=== PATIENT | female | born 1990 | race Caucasian/White ===

== ENCOUNTER → 2019-05-09 | Outpatient (CLI) | payer BC | END | disposition home or self-care (01) | LOC: LABWHC1 14:38 | PROVIDERS: ATTEND Obstetrics & Gynecology Obstetrics | DX: N92.5 Other specified irregular menstruation (principal) | CPT/HCPCS: 36415; 84702 ==

== ENCOUNTER → 2019-05-11 | Outpatient (CLI) | payer BC | END | disposition home or self-care (01) | LOC: LABWHC1 14:41 | PROVIDERS: ATTEND Obstetrics & Gynecology Obstetrics | DX: N92.5 Other specified irregular menstruation (principal) | CPT/HCPCS: 36415; 84702; 86850; 86900; 86901 ==

== ENCOUNTER → 2019-05-14 | Outpatient (CLI) | payer BC | END | disposition home or self-care (01) | LOC: LABWHC1 11:43 | PROVIDERS: ATTEND Obstetrics & Gynecology Obstetrics | DX: O02.1 Missed abortion (principal) | CPT/HCPCS: 36415; 84702 ==

== ENCOUNTER → 2019-05-16 | Outpatient (CLI) | payer BC | END | disposition home or self-care (01) | LOC: LABWHC1 14:58 | PROVIDERS: ATTEND Obstetrics & Gynecology Obstetrics | DX: O20.0 Threatened abortion (principal) | CPT/HCPCS: 36415; 84144; 84702 ==

== ENCOUNTER → 2019-05-17 | Outpatient (CLI) | payer BC ==
[~2019-05-17] MED LIST: METHOTREXATE SODIUM (PF) 25 MG/ML 2 ML VIAL IM ONE
[2019-05-17 16:31] VITALS: BP 118/78; PULSE 80; RESP 16; TEMP 97.8
[2019-05-17 16:43] LABS: Basophils % (A) 0 %; Eosinophils # (A) 0.1 k/uL (0-0.7); Eosinophils % (A) 1 %; HCT 38.9 % (34.0-46.0); Lymphocytes # (A) 1.8 k/uL (1.0-4.8); Lymphocytes % (A) 31 %; MCH 31.4 pg (25.0-35.0); MCHC 33.5 g/dL (31.0-37.0); MCV 93.5 fL (80.0-100.0); Mean Platelet Volume 6.9; Monocytes # (A) 0.3 k/uL (0-1.0); Monocytes % (A) 6 %; Neutrophils # (A) 3.3 k/uL (1.3-7.7); Neutrophils % (A) 58 %; Platelet Count 221 k/uL (150-450); RBC 4.16 m/uL (3.80-5.40); RDW 12.1 % (11.5-15.5); WBC 5.7 k/uL (3.8-10.6)
[2019-05-17 16:51] LABS: ALT 27 U/L (4-34); AST 42 U/L (14-36); Blood Urea Nitrogen 18 mg/dL (7-17); Creatine Kinase 119 U/L (30-135)
[2019-05-17 16:58] LABS: HCG,Qualitative Serum Detected
== END | disposition home or self-care (01) ==
LOC: PROCWHC3 15:49
PROVIDERS: ATTEND Obstetrics & Gynecology Obstetrics
DX: O00.109 Unspecified tubal pregnancy without intrauterine pregnancy (principal); Z3A.00 Weeks of gestation of pregnancy not specified
CPT/HCPCS: 82550; 84450; 84460; 84520; 85025; 84703; 96402; J9260

== ENCOUNTER → 2019-05-17 | Outpatient (CLI) | payer BC ==
--- NOTE | 2019-05-17 14:44 | US ---
EXAMINATION TYPE: Ultrasound OB <= 14 weeks transvaginal DATE OF EXAM: 05/17/2019 2:26 PM COMPARISON: NONE CLINICAL HISTORY: 28-year-old female R68.89 generalized symptoms. Pt states vaginal bleeding and cram ping/ pt states positive beta at 60 EXAM PERFORMED: Transvaginal (TV) and Transabdominal (TA) FINDINGS: EXAM MEASUREMENTS: GESTATIONAL AGE / DATING Physician Established: Dates by LMP: (6 weeks/0 days) EDC: 01/10/2020 Dates by First Scan: No prior Dates by Current Scan for: No IUP seen at this time MATERNAL ANATOMY Uterus: 7.2 x 3.7 x 3.6 cm Right Ovary: 3.2 x 1.9 x 2.7 cm Left Ovary: 3.2 x 2.5 x 1.9 Post CDS / Adnexa: wnl Presence of free fluid: Scant amount post cul-de sac Presence of corpus luteal cyst: No GESTATION / SURVEY IUP: No IUP seen at this time Date of LMP: 04/05/2019 Beta HcG (if available): Pt states 60 on yesterday's draw No evidence of IUP at this time. Follicular change in both ovaries. Results called to Dr. Howe at time of exam IMPRESSION: No intrauterine identified. Correlate with beta-hCG values. A threshold of 2000 is needed f or visualization of an intrauterine on transvaginal scanning. If there is a positive pregna ncy test, differential considerations include normal early , failed , nonvisualized ectopic . Serial beta hCG and ultrasound follow-up as indicated.
== END | disposition home or self-care (01) ==
LOC: RADUSWWP 14:07
PROVIDERS: ATTEND Obstetrics & Gynecology Obstetrics
DX: R68.89 Other general symptoms and signs (principal)
CPT/HCPCS: 76801; 76817

== ENCOUNTER → 2019-05-23 | Outpatient (CLI) | payer BC ==
[2019-05-23 15:06] LABS: HCT 38.4 % (34.0-46.0); HGB 12.7 gm/dL (11.4-16.0); MCH 30.7 pg (25.0-35.0); MCV 92.9 fL (80.0-100.0); Mean Platelet Volume 6.8; Platelet Count 244 k/uL (150-450); RBC 4.14 m/uL (3.80-5.40); RDW 12.1 % (11.5-15.5); WBC 6.2 k/uL (3.8-10.6)
[2019-05-23 19:07] LABS: African American GFR (CKD) 136.7 (60.0-200.0); Non-African American GFR(CKD) 117.9 (60.0-200.0)
[2019-05-23 19:16] LABS: HCG,Quantitative Serum 61.1 mIU/mL
== END | disposition home or self-care (01) ==
LOC: LABWHC1 14:19
PROVIDERS: ATTEND Obstetrics & Gynecology Obstetrics
DX: O00.109 Unspecified tubal pregnancy without intrauterine pregnancy (principal)
CPT/HCPCS: 36415; 82565; 84450; 84460; 84520; 84702; 85027

== ENCOUNTER → 2019-05-28 | Outpatient (CLI) | payer BC | END | disposition home or self-care (01) | LOC: LABWHC1 17:08 | PROVIDERS: ATTEND Obstetrics & Gynecology Obstetrics | DX: O00.90 Unspecified ectopic pregnancy without intrauterine pregnancy (principal) | CPT/HCPCS: 36415; 84702 ==

== ENCOUNTER → 2019-06-01 | Outpatient (CLI) | payer BC | END | disposition home or self-care (01) | LOC: LABWHC1 15:50 | PROVIDERS: ATTEND Obstetrics & Gynecology Obstetrics | DX: O00.109 Unspecified tubal pregnancy without intrauterine pregnancy (principal) | CPT/HCPCS: 36415; 84702 ==

== ENCOUNTER → 2019-06-08 | Outpatient (CLI) | payer BC | END | disposition home or self-care (01) | LOC: LABWHC1 15:39 | PROVIDERS: ATTEND Obstetrics & Gynecology Obstetrics | DX: O00.109 Unspecified tubal pregnancy without intrauterine pregnancy (principal) | CPT/HCPCS: 36415; 84702 ==

== ENCOUNTER → 2019-09-03 | Outpatient (CLI) | payer BC | END | disposition home or self-care (01) | LOC: LABWHC1 10:06 | PROVIDERS: ATTEND Obstetrics & Gynecology Obstetrics | DX: N92.5 Other specified irregular menstruation (principal) | CPT/HCPCS: 36415; 84702 ==

== ENCOUNTER → 2019-09-05 | Outpatient (CLI) | payer BC | END | disposition home or self-care (01) | LOC: LABWHC1 09:48 | PROVIDERS: ATTEND Obstetrics & Gynecology Obstetrics | DX: N92.5 Other specified irregular menstruation (principal) | CPT/HCPCS: 36415; 84144; 84702 ==

== ENCOUNTER 2019-10-10 14:27 | Day surgery (SDC) | payer BC ==
[~2019-10-10 14:27] MED LIST changes: -METHOTREXATE SODIUM (PF) 25 MG/ML 2 ML VIAL IM ONE; +Pre Op ABX Message 1 EACH MISC MISCELLANE ONE
[2019-10-10] MEDS ORDERED: LACTATED RINGERS 1,000 ML IV ONE (14:56)
[2019-10-10] MEDS ORDERED: LIDOCAINE 1% (10MG/ML) FOR IV START INTRADERMA ONE (15:00)
[2019-10-10] MEDS ORDERED: ONDANSETRON 4 MG/2 ML VIAL ONE ×2 (15:07→18:02)
[2019-10-10] MEDS ORDERED: ONDANSETRON 4 MG/2 ML VIAL IVP ONE ×2 (15:08→18:02)
[2019-10-10] MEDS ORDERED: DEXAMETHASONE SOD PHOSPHATE 10 MG/ML 1 ML VIAL IV ONE (15:08)
[2019-10-10] MEDS ORDERED: SCOPOLAMINE 1.5MG/72HR PATCH TRANSDERM ONE (15:09)
[2019-10-10] MEDS ORDERED: MIDAZOLAM 2 MG/2 ML VIAL ONE (16:19)
[2019-10-10] MEDS ORDERED: LIDOCAINE 1% INJ 10MG/ML (20 ML MDV) ONE (16:19)
[2019-10-10] MEDS ORDERED: fentaNYL (PF) 50 MCG/ML 2 ML AMP ONE (16:19)
[2019-10-10] MEDS ORDERED: KETOROLAC 30 MG/ML 1 ML VIAL ONE (16:19)
[2019-10-10] MEDS ORDERED: PROPOFOL 10 MG/ML 20 ML VIAL IV ONE (16:19)
[2019-10-10] MEDS ORDERED: METHYLERGONOVINE 0.2 MG/ML 1 ML AMP ONE (16:19)
--- NOTE | 2019-10-10 16:58 | P.OP ---
Date of Procedure: 10/10/19 Preoperative Diagnosis: Missed AB Postoperative Diagnosis: Same Procedure(s) Performed: Suction dilation and curettage Anesthesia: MAC Surgeon: Pura Howe Estimated Blood Loss (ml): 5 Urine output (ml): 100 Pathology: other (Uterine contents) Condition: stable Disposition: PACU Indications for Procedure: This 29-year-old 2 para 0010 at estimated date of gestation 7 weeks, had ultrasound with no heart tones noted at 5 weeks 6 days comparable to prior ultrasound 2 weeks prior. No heart tones were appreciated. Operative Findings: Moderate amount of products of conception. Description of Procedure: Patient was taken back to the operative suite where general anesthesia was obtained by the anesthesia Department without difficulty. She was prepped and draped in normal sterile fashion in the dorsal lithotomy position. A red rubber catheter was then used to drain the bladder clear yellow urine. A weighted speculum was placed in the posterior vaginal vault intralipids the cervix is visualized and grasped with a scalpel to tenaculum. The endocervical canal was then dilated serially. An 8 curved suction curette was placed through the cervix and toward the endometrial cavity. A moderate amount of products of conception were obtained. Approximately 2 passes were used to clear the uterus. A sharp curettage was then performed to ensure all proximal were removed. The suction curet was placed one additional time to ensure complete evacuation. Significant tenaculum was taken off the anterior lip the cervix hemostasis was appreciated. Uterus noted be firm. All counts were noted be correct 2 patient tolerated procedure well and was taken the recovery room awake in stable condition.
[2019-10-10 17:05] VITALS: TEMP 97.7
[2019-10-10 17:15] VITALS: RESP 16
[2019-10-10] MEDS ORDERED: HYDROmorphone 0.5 MG/0.5 ML SYRINGE IVP ONE (17:16)
[2019-10-10 18:56] VITALS: BP 109/47; PULSE 64
== END 2019-10-10 19:13 | disposition home or self-care (01) ==
LOC: OR 14:27
PROVIDERS: ATTEND Obstetrics & Gynecology Obstetrics
DX: O02.1 Missed abortion (principal); Z88.2 Allergy status to sulfonamides; Z86.19 Personal history of other infectious and parasitic diseases; Z98.890 Other specified postprocedural states; Z80.8 Family history of malignant neoplasm of other organs or systems
CPT/HCPCS: 59820; J2250; J1100; J2210; J2405; J2001; J3010; J1885; J2704; J1170; 88305

== ENCOUNTER → 2019-11-08 | Outpatient (CLI) | payer BC ==
--- NOTE | 2019-11-08 23:06 | XR ---
EXAMINATION TYPE: XR cervical spine 3 views XR thoracic spine 3 views, XR lumbosacral spine 5 views, XR Hip Bilateral Complete, 2 views each side DATE OF EXAM: 11/08/2019 COMPARISON: NONE HISTORY: 29-year-old female R54, R54.9, pain positive NICOLA FINDINGS: Cervical spine: Normal odontoid view. Reversal of the normal cervical lordosis but with preserved alignment. No prede ntal space widening or prevertebral soft tissue swelling. Disc interspaces are maintained. Thoracic spine: Gentle S-shaped scoliosis lower thoracic and lumbar spine. 12 rib bearing thoracic vertebral bodies. All pedicles are visualized. Bulky anterior endplate T12-L1. Mild degenerative disc disease around th e thoracolumbar junction. Some mild focal kyphosis at this level. Vertebral body heights are preserve d. Alignment is maintained. Lumbar spine: Vertebral body heights are preserved and alignment is maintained. Mild facet arthropathy lower lumbar spine. Levoconvex scoliotic curvature of the lumbar spine. HIPS: Joint spaces are symmetric and maintained. No acute fracture, subluxation, dislocation. No subarticul ar erosions at the SI joints. Some vacuum phenomenon is noted at both SI joints. IMPRESSION: 1. Cervical spine: Reversal of the normal cervical lordosis but with preserved alignment and no signi ficant degenerative change seen. 2. Thoracolumbar spine: S-shaped scoliosis lower thoracic and lumbar spine. Bulky anterior plate spon dylosis T12-L1 with mild degenerative disc disease around the thoracolumbar junction. Some mild focal kyphotic curvature at this level. No vertebral compression collapse or malalignment. 3. Hips: No acute osseous abnormality seen. Hip joint space is maintained.
== END | disposition home or self-care (01) ==
LOC: RADXRMAIN 10:43
PROVIDERS: ATTEND Family Medicine
DX: M51.35 Other intervertebral disc degeneration, thoracolumbar region (principal); M47.815 Spondylosis without myelopathy or radiculopathy, thoracolumbar region; M41.85 Other forms of scoliosis, thoracolumbar region; M25.552 Pain in left hip; M25.551 Pain in right hip; M54.2 Cervicalgia; M54.5 Low back pain; M53.3 Sacrococcygeal disorders, not elsewhere classified
CPT/HCPCS: 72040; 72070; 72110; 73521

== ENCOUNTER → 2019-11-12 | Outpatient (CLI) | payer BC ==
[2019-11-12 23:47] LABS: HCG,Quantitative Serum 2.5 mIU/mL; T4, Free (Free Thyroxine) 1.1 ng/dL (0.80-1.80)
[2019-11-13 02:33] LABS: Hemoglobin A1C 4.8 % (4.0-6.0)
[2019-11-13 06:35] LABS: Cardiolipin Ab IgG Interp NEGATIVE (NEGATIVE); Cardiolipin Ab IgM Interp NEGATIVE (NEGATIVE); Cardiolipin IgM Antibody <0.2 U/mL
[2019-11-13 13:28] LABS: APTT 44 Sec(s) (<43); APTT 1:1 Mix 38 Sec(s) (<43); Dilute Russell Viper Venom 41 Sec(s) (<44)
[2019-11-13 19:24] LABS: Anti-Mullerian Hormone 1.58 ng/mL (0.69 - 13.39)
== END | disposition home or self-care (01) ==
LOC: LABWHC1 14:23
PROVIDERS: ATTEND Obstetrics & Gynecology Obstetrics
DX: O02.1 Missed abortion (principal)
CPT/HCPCS: 36415; 82397; 82784; 83036; 84439; 84443; 84702; 85613; 85730; 85732; 86147

== ENCOUNTER → 2019-12-27 | Outpatient (CLI) | payer BC | END | disposition home or self-care (01) | LOC: LABWHC1 11:31 | PROVIDERS: ATTEND Obstetrics & Gynecology Obstetrics | DX: Z34.90 Encounter for supervision of normal pregnancy, unspecified, unspecified trimester (principal); Z3A.00 Weeks of gestation of pregnancy not specified | CPT/HCPCS: 36415; 84144; 84702 ==

== ENCOUNTER → 2019-12-29 | Outpatient (CLI) | payer BC | END | disposition home or self-care (01) | LOC: LABMAIN 14:19 | PROVIDERS: ATTEND Obstetrics & Gynecology Obstetrics | DX: Z53.9 Procedure and treatment not carried out, unspecified reason (principal) ==

== ENCOUNTER → 2020-01-17 | Outpatient (CLI) | payer BC ==
--- NOTE | 2020-01-17 11:43 | US ---
EXAMINATION TYPE: Transabdominal DATE OF EXAM: 01/17/2020 11:20 AM COMPARISON: NONE CLINICAL HISTORY: O46.91 Antepartum hemorrhage, unspecified. h/o ectopic and miscarriage this year, c ramping and dark urine EXAM PERFORMED: OBTA/OBTV EXAM MEASUREMENTS: GESTATIONAL AGE / DATING Physician Established: Not yet established Dates by LMP: (6 weeks/5 days) EDC: 09/06/2020 Dates by First Scan: No previous this is first scan Dates by Current Scan for: (6 weeks/5 days) EDC: 09/06/2020 MATERNAL ANATOMY Uterus: 8.5 x 5.8 x 4.5cm Right Ovary: 3.1 x 2.5 x 1.9cm Left Ovary: 2.3 x 1.3 x 1.1cm Post CDS / Adnexa: wnl Presence of free fluid: no Presence of corpus luteal cyst: 2.2cm Presence of subchorionic bleed: no GESTATION / SURVEY CRL: 0.8cm (6 weeks/5 days) MSD: wnl Yolk Sac (normal less than 6mm): 0.2 Heart Rate: 133 bpm Rhythm: normal IUP: Viable IUP Date of LMP: Single live intrauterine gestation is confirmed as gestational sac, yolk sac, and pole are pres ent. No free fluid in pelvic cul-de-sac. Both ovaries are seen. No suspicious extra ovarian adnexal lesion. Right ovary has a 2.2 cm cystic le ruth with thick concentric wall thought to reflect corpus luteal cyst from recent ovulation. IMPRESSION: Single live intrauterine gestation is confirmed, mean crown-rump length 0.8 cm correspond s to a 6 week 5 day old fetus.
== END | disposition home or self-care (01) ==
LOC: RADUSWWP 10:52
PROVIDERS: ATTEND Obstetrics & Gynecology Obstetrics
DX: O46.91 Antepartum hemorrhage, unspecified, first trimester (principal); Z3A.01 Less than 8 weeks gestation of pregnancy
CPT/HCPCS: 76801; 76817

== ENCOUNTER 2020-09-05 06:00 | Inpatient (IN) | payer BC ==
[2020-09-05] MEDS ORDERED: CITRIC ACID-SODIUM CITRATE 15 ML CUP PO ONE (06:15)
[2020-09-05] MEDS: LACTATED RINGERS 1,000 ML IV SCH ×5 (06:25→16:48)
[2020-09-05 06:38] LABS: Basophils % (A) 0 %; Eosinophils # (A) 0.1 k/uL (0-0.7); Eosinophils % (A) 1 %; HCT 35.2 % (34.0-46.0); HGB 12.4 gm/dL (11.4-16.0); Lymphocytes % (A) 18 %; MCH 32.7 pg (25.0-35.0); MCHC 35.2 g/dL (31.0-37.0); MCV 92.7 fL (80.0-100.0); Mean Platelet Volume 7.2; Monocytes # (A) 0.6 k/uL (0-1.0); Monocytes % (A) 5 %; Neutrophils # (A) 8.1 k/uL (1.3-7.7); Neutrophils % (A) 73 %; Platelet Count 228 k/uL (150-450); RDW 12.6 % (11.5-15.5)
[2020-09-05] MEDS ORDERED: NALBUPHINE 10 MG/ML (1 ML AMP) ONE (07:35)
[2020-09-05] MEDS ORDERED: ONDANSETRON 4 MG/2 ML VIAL ONE (07:35)
[2020-09-05] MEDS ORDERED: MORPHINE SULFATE (PF) 0.3 MG/0.3 ML SYR ONE (07:35)
[2020-09-05] MEDS ORDERED: OXYTOCIN 10 UNIT/ML 1 ML VIAL ONE (07:35)
[2020-09-05] MEDS ORDERED: METOCLOPRAMIDE 5 MG/ML 2 ML VIAL IVP PRN (08:26)
[2020-09-05] MEDS ORDERED: ZOLPIDEM 5 MG TAB PO PRN (08:26)
[2020-09-05] MEDS ORDERED: diphenhydrAMINE 50 MG CAP PO PRN (08:26)
[2020-09-05] MEDS ORDERED: NALOXONE 0.4 MG/ML 1 ML VIAL IV PRN (08:26)
[2020-09-05] MEDS ORDERED: ONDANSETRON 4 MG/2 ML VIAL IVP PRN (08:26)
[2020-09-05] MEDS ORDERED: SIMETHICONE 80 MG CHEWABLE PO PRN (08:26)
[2020-09-05] MEDS ORDERED: diphenhydrAMINE 50 MG/ML 1 ML VIAL IVP PRN ×2 (08:26)
[2020-09-05] MEDS ORDERED: diphenhydrAMINE 25 MG CAP PO PRN (08:26)
[2020-09-05] MEDS ORDERED: OXYTOCIN 30 UNITS/500 ML NS 30 UNIT in SALINE 1 500ML.BAG IV SCH (08:30)
--- NOTE | 2020-09-05 08:31 | P.HPOB ---
History of Present Illness H&P Date: 09/05/20 Chief Complaint: IUP at 39-6/7 weeks, breech presentation This is a 30-year-old 3 para 0020 that presents to labor and delivery at 39-6/7 weeks, estimated due date of 09/06. Patient was examined in the office yesterday and found to be in breech presentation. Patient has been receiving routine care which has been uncomplicated. Patient notes good mo vement denies vaginal bleeding loss of fluid or contractions. On bloodwork this patient has a blood type of O+, rubella status immune, B surface antigen negative, HIV negative, RPR nonreactive, group beta strep cultures are negative. Review of Systems Constitutional: Denies chills, Denies fatigue, Denies fever Ears, nose, mouth and throat: Denies headache Cardiovascular: Reports leg edema Respiratory: Denies dyspnea Gastrointestinal: Denies constipation, Denies diarrhea, Denies nausea, Denies vomiting Genitourinary: Reports Past Medical History Past Medical History: No Reported History History of Any Multi-Drug Resistant Organisms: None Reported Additional Past Surgical History / Comment(s): d&c, X2 Knee sugerys Past Anesthesia/Blood Transfusion Reactions: Postoperative Nausea & Vomiting ( PONV) Past Psychological History: No Psychological Hx Reported Smoking Status: Never smoker Past Alcohol Use History: None Reported Past Drug Use History: None Reported Medications and Allergies Home Medications Medication Instructions Recorded Confirmed Type Aspirin 81 mg PO DAILY 09/05/20 09/05/20 History Famotidine [Pepcid] 40 mg PO BID 09/05/20 09/05/20 History Pnv No.95/Ferrous Fum/Folic AC 1 tab PO DAILY 09/05/20 09/05/20 History [ Multivitamin Tablet] Allergies Allergy/AdvReac Type Severity Reaction Status Date / Time Sulfa (Sulfonamide Allergy Rash/Hives Verified 10/10/19 14:43 Antibiotics) Exam Osteopathic Statement: *. No significant issues noted on an osteopathic structural exam other than those noted in the History and Physical/Consult. Vital Signs Temp Pulse Resp BP Pulse Ox 09/05/20 06:06 97.2 F L 76 16 117/70 96 Intake and Output 09/04/20 09/05/20 09/05/20 22:59 06:59 14:59 Other: Weight 90.718 kg Targeted physical exam is performed in this date and inspector and tester a well-nourished well-developed female in no acute distress, breathing is noted to be nonlabored, heart has regular rate and rhythm, abdomen is gravid, on ultrasound exam remains in the breech presentation. Cervical exam is deferred. heart tones noted to be category 1 and she is not callie. Results Result Diagrams: 09/05/20 06:15 Abnormal Lab Results - Last 24 Hours (Table) 09/05/20 Range/Units 06:15 WBC 11.0 H (3.8-10.6) k/uL Neutrophils # 8.1 H (1.3-7.7) k/uL Assessment and Plan (1) Term Current Visit: Yes Status: Acute Code(s): Z34.90 - ENCNTR FOR SUPRVSN OF NORMAL , UNSP, UNSP TRIMESTER SNOMED Code(s): 18384718 (2) Breech presentation Current Visit: Yes Status: Acute Code(s): O32.1XX0 - MATERNAL CARE FOR BREECH PRESENTATION, UNSP SNOMED Code(s): 8597610 Plan: This is a 30-year-old at 39-6/7 weeks that presents to labor and delivery for primary secondary to breech presentation. Patient is counseled on surgery all questions are answered. Risks are reviewed including but not limited to infection, bleeding, damage to bladder, bowel, injury. Patient states understanding and will proceed.
--- NOTE | 2020-09-05 08:37 | P.OP ---
Date of Procedure: 09/05/20 Preoperative Diagnosis: IUP at 39 and 6, breech presentation Postoperative Diagnosis: Same Procedure(s) Performed: Primary low transverse section Anesthesia: spinal Surgeon: Pura Howe Termite Technician #1: Ferny Vitale Estimated Blood Loss (ml): 530 IV fluids (ml): 800 Urine output (ml): 150 Pathology: none sent Condition: stable Disposition: observation Indications for Procedure: This is a 30-year-old at 39-6/7 weeks that presents to labor and delivery for primary secondary to breech presentation. Operative Findings: Normal uterus tubes and ovaries were appreciated, female infant in breech presentation,. Viable female infant delivered at 757, weight of 8 lbs. 3 oz. and Apgars of 8 and 9 at one and 5 minutes respect daily. Description of Procedure: Patient is taken back to the operating suite where spinal anesthesia was found be adequate by the anesthesia department. She was prepped and draped in normal sterile fashion in the dorsal supine position a Pfannenstiel skin incision was made the scalpel and carried through to the underlying layer of fascia. The fascia was then incised in the midline and the incision was extended laterally. The superior aspect of the fascial incision was then grasped with Art clamps, elevated and underlying rectus muscle was dissected off sharply. Attention was then turned the inferior aspect of the fascial incision which was grasped art clamps, elevated and underlying rectus muscle was dissected off sharply. The rectus muscles were in the midline the peritoneum was identified and entered. This incision was extended superiorly and inferiorly with good visualization the bladder. The bladder blade was then inserted into the pelvis. The vesicouterine peritoneum was visualized and the bladder flap was created using sharp and blunt dissection. Hysterotomy incision was made with the scalpel and the was encountered in a zara breech presentation. The hips were brought through the hysterotomy incision and the was delivered in the usual fashion. The umbilical cords doubly clamped and cut and the infant was handed off to awaiting RN. The placenta was then manually delivered and the uterus was cleared of all clots and debris. The uterus was delivered from the abdomen. The hysterotomy incision was closed with 0 Vicryl in a running locked fashion. A second imbricating suture was performed. Hemostasis was appreciated. The pelvis was then copiously irrigated. The uterus was returned to the abdomen and the gutters were cleared of all clots and debris. Hysterotomy incision was inspected and bleeding was noted on the left- hand side therefore a [id number] suture was used to obtain hemostasis. The hysterotomy incision was inspected once again hemostasis was appreciated. The peritoneum was then loosely reapproximated the rectus muscles inspected and hemostasis was appreciated. The fascia was then closed with 0 Vicryl in a running fashion from one lateral edge the midline and the other lateral edge the midline. The subcutaneous tissue was irrigated found to be hemostatic and closed with 3-0 Vicryl. The skin was then closed with 4-0 Vicryl in a subcuticular fashion. Steri-Strips and sterile dressings were applied. All counts were noted to be correct 2 at the end of the procedure. Patient and infant tolerated delivery well and are resting comfortably.
[2020-09-05] MEDS ORDERED: IBUPROFEN IV 800 MG in SODIUM CHLORIDE 0.9% 250 ML IV SCH (09:00)
[2020-09-05] MEDS: PRENATAL VIT-IRON-FOLIC ACID 1 EACH CAP PO SCH (09:22)
[2020-09-05] MEDS ORDERED: ACETAMINOPHEN IV (For NPO) 1,000 MG in EMPTY BAG 1 BAG IVPB SCH (12:00)
[2020-09-05] MEDS: ACETAMINOPHEN TAB 500 MG TAB PO SCH ×2 (12:07→18:06)
[2020-09-05] MEDS ORDERED: IBUPROFEN IV 800 MG in SODIUM CHLORIDE 0.9% 250 ML IV PRN (14:38)
[2020-09-05] MEDS ORDERED: ACETAMINOPHEN IV (For NPO) 1,000 MG in EMPTY BAG 1 BAG IVPB PRN (14:38)
[2020-09-05] MEDS: IBUPROFEN 600 MG TAB PO SCH ×2 (16:47→22:14)
[2020-09-05] MEDS: SENNOSIDES-DOCUSATE SODIUM 1 EACH TAB PO SCH (19:38)
[2020-09-06] MEDS: ACETAMINOPHEN TAB 500 MG TAB PO SCH ×5 (00:24→23:27)
[2020-09-06] MEDS: LACTATED RINGERS 1,000 ML IV SCH (02:23)
[2020-09-06] MEDS: IBUPROFEN 600 MG TAB PO SCH ×4 (04:09→22:24)
[2020-09-06 04:39] LABS: Basophils % (A) 0 %; Eosinophils # (A) 0.1 k/uL (0-0.7); Eosinophils % (A) 1 %; Lymphocytes # (A) 1.9 k/uL (1.0-4.8); Lymphocytes % (A) 16 %; MCH 33.6 pg (25.0-35.0); MCHC 35.5 g/dL (31.0-37.0); MCV 94.6 fL (80.0-100.0); Mean Platelet Volume 7.8; Monocytes # (A) 0.6 k/uL (0-1.0); Monocytes % (A) 5 %; Neutrophils % (A) 77 %; Platelet Count 175 k/uL (150-450); RBC 2.96 m/uL (3.80-5.40); RDW 12.7 % (11.5-15.5); WBC 11.8 k/uL (3.8-10.6)
[2020-09-06 04:40] LABS: HGB 9.9 gm/dL (11.4-16.0)
[2020-09-06] MEDS: SENNOSIDES-DOCUSATE SODIUM 1 EACH TAB PO SCH ×2 (08:07→19:30)
--- NOTE | 2020-09-06 09:40 | P.PNOBGPC ---
Subjective - Subjective Interval history: Feeling well overnight. Pain well-controlled with oral pain medications. Voi ding spontaneously. Lochia minimal. Patient reports: Reports appetite normal, Reports voiding normally, Reports pain well controlled, Reports ambulating normally [place]: doing well, nursing well Objective - Vital Signs Latest vital signs: Vital Signs Temp Pulse Pulse Resp BP Pulse Ox 09/06/20 08:00 98.5 F 78 16 101/66 98 09/06/20 04:00 98.6 F 72 18 92/57 96 09/06/20 00:00 98.5 F 61 18 98/58 96 09/05/20 20:00 98.3 F 65 18 100/65 97 09/05/20 16:00 98.4 F 60 16 105/64 97 09/05/20 12:00 98.1 F 60 16 95/54 96 09/05/20 10:25 55 L 16 100/58 09/05/20 09:59 52 L 16 102/62 96 Intake and Output 09/05/20 09/06/20 09/06/20 22:59 06:59 14:59 Output Total 1050 800 Balance -1050 -800 Output: Urine 1050 800 Other: # Voids 1 1 - Exam Extremities: Present: edema Abdomen: Present: normal appearance, soft. Absent: distention, tenderness Incision: Present: normal, dry, intact. Absent: erythematous Uterus: Present: normal, firm. Absent: tenderness - Labs Labs: Abnormal Lab Results - Last 24 Hours (Table) 09/06/20 Range/Units 04:05 WBC 11.8 H (3.8-10.6) k/uL RBC 2.96 L (3.80-5.40) m/uL Hgb 9.9 L D (11.4-16.0) gm/dL Hct 28.0 L (34.0-46.0) % Neutrophils # 9.0 H (1.3-7.7) k/uL Assessment and Plan (1) Breech presentation Current Visit: Yes Status: Acute Code(s): O32.1XX0 - MATERNAL CARE FOR BREECH PRESENTATION, UNSP SNOMED Code(s): 5520167 (2) Term Current Visit: Yes Status: Acute Code(s): Z34.90 - ENCNTR FOR SUPRVSN OF NORMAL , UNSP, UNSP TRIMESTER SNOMED Code(s): 48416366 (3) S/P section Current Visit: Yes Status: Acute Code(s): Z98.891 - HISTORY OF UTERINE SCAR FROM PREVIOUS SURGERY SNOMED Code(s): 739650206 Plan: Postop day 1 status post primary low transverse section for breech presentation. Recovering well. Routine care. Anticipate discharge home tomorrow.
--- NOTE | 2020-09-06 09:43 | P.PN ---
Progress Note - Text Progress Note Date: 09/06/20 (804) Anesthesia Postop day 1 Subjective: Status Post section with Duramorph. Patient seen and examined. Doing well without complaint. VAS 0. No nausea or vomiting. Mild pruritus tolerable.. Afebrile. Gross lower extremity strength intact. . Without apparent anesthetic complications. Objective: Vital signs reviewed Heart: Regular Rate Lungs: Good chest excursion Abdomen: Appears nondistended Assessment: Status post with Duramorph postop day 1 Plan: Continue current care with your medical management.
[2020-09-06] MEDS: PRENATAL VIT-IRON-FOLIC ACID 1 EACH CAP PO SCH (19:34)
[2020-09-07] MEDS: IBUPROFEN 600 MG TAB PO SCH ×2 (01:25→07:47)
[2020-09-07] MEDS: ACETAMINOPHEN TAB 500 MG TAB PO SCH ×2 (04:35→09:53)
[2020-09-07 07:47] VITALS: BP 116/74; PULSE 70; RESP 16; TEMP 97.8
--- NOTE | 2020-09-07 10:30 | P.DS ---
Providers Date of admission: 09/05/20 06:00 Expected date of discharge: 09/07/20 Attending physician: Pura Howe Primary care physician: Nadine Mathew - Discharge Diagnosis(es) (1) Breech presentation Current Visit: Yes Status: Acute (2) Term Current Visit: Yes Status: Acute (3) S/P section Current Visit: Yes Status: Acute Hospital Course: This is a 30-year-old 3 now para 10-1 woman who is admitted at 39-6/7 weeks' gestation for primary low transverse section secondary to breech presentation. She went to the operating room where she underwent an uncomplicated primary section. She was delivered of a liveborn female infant weighing 8 lbs. 3 oz. with Apgars of 8 at 1 minute and 9 at 5 minutes. The patient's post operative course was unremarkable. By postoperative day #1 she was able to ambulate and void spontaneously with a Patel catheter removed. She was breast-feeding and her lochia was moderate. By postoperative day #2 she continued to do very well. Her pain was well-controlled with oral ibuprofen and Tylenol. She was voiding spontaneously and had a bowel movement. Her incision is intact and well-healing. She had scant lochia. She is breast-feeding successfully. She was therefore discharged home with routine instructions for care and follow-up. Procedures: Primary low transverse section Patient Condition at Discharge: Good Plan - Discharge Summary New Discharge Prescriptions: New Acetaminophen Tab [Tylenol] 1,000 mg PO Q6H tab Ibuprofen [Motrin] 600 mg PO Q6H tab Sennosides-Docusate Sodium [Senokot-S] 2 each PO BID@0800,1999 tab Discontinued Aspirin 81 mg PO DAILY No Action Famotidine [Pepcid] 40 mg PO BID Pnv No.95/Ferrous Fum/Folic AC [ Multivitamin Tablet] 1 tab PO DAILY Discharge Medication List Famotidine [Pepcid] 40 mg PO BID 09/05/20 [History] Pnv No.95/Ferrous Fum/Folic AC [ Multivitamin Tablet] 1 tab PO DAILY 09/05/20 [History] Acetaminophen Tab [Tylenol] 1,000 mg PO Q6H tab 09/07/20 [Rx] Ibuprofen [Motrin] 600 mg PO Q6H tab 09/07/20 [Rx] Sennosides-Docusate Sodium [Senokot-S] 2 each PO BID@0800,1999 tab 09/07/20 [Rx] Follow up Appointment(s)/Referral(s): Pura Howe DO [Doctor of Osteopathic Medicine] - 2 Weeks Activity/Diet/Wound Care/Special Instructions: Follow-up in 2 weeks after surgery in the office. Call the office with any concerning signs or symptoms including fever greater than 100.5, severe abdominal pain, heavy vaginal bleeding, signs of wound infection, increased swelling or redness of the lower extremities, signs of depression. No driving for 2 weeks after surgery. No heavy lifting or vigorous activity until reevaluated in the office. No intercourse for 6 weeks after delivery.
== END 2020-09-07 13:32 | disposition home or self-care (01) | DRG 788 ==
LOC: 4FBP 06:00
PROVIDERS: ADMIT Obstetrics & Gynecology Obstetrics; ATTEND Obstetrics & Gynecology Obstetrics
PROC: 10D00Z1 Extraction of Products of Conception, Low, Open Approach (ICD-10-PCS; principal; 2020-09-05 07:30)
DX: O34.211 Maternal care for low transverse scar from previous cesarean delivery (principal); O69.81X0 Labor and delivery complicated by cord around neck, without compression, not applicable or unspecified; O64.1XX0 Obstructed labor due to breech presentation, not applicable or unspecified; O99.73 Diseases of the skin and subcutaneous tissue complicating the puerperium; L29.9 Pruritus, unspecified; O26.893 Other specified pregnancy related conditions, third trimester; Z67.40 Type O blood, Rh positive; Z37.0 Single live birth; Z3A.39 39 weeks gestation of pregnancy; Z79.82 Long term (current) use of aspirin; Z88.2 Allergy status to sulfonamides
CPT/HCPCS: 85025; 86850; 86900; 86901

== ENCOUNTER → 2021-03-19 | Outpatient (CLI) | payer BC ==
--- NOTE | 2021-03-19 13:55 | CT ---
EXAMINATION TYPE: CT abdomen pelvis w con DATE OF EXAM: 03/19/2021 COMPARISON: None HISTORY: Generalized abdominal and back pain post x6 months ago. CT DLP: 478.6 mGycm Automated exposure control for dose reduction was used. TECHNIQUE: Helical acquisition of images from the lung bases through the pelvis have been completed. CONTRAST: Performed with Oral Contrast and with IV Contrast, patient injected with 100ml mL of Isovue 300. FINDINGS: LUNG BASES: No significant abnormality is appreciated. AORTA: No significant abnormality is appreciated. LIVER/GB: Hypodensity within the right lobe of the liver measures only 11 mm, axial image 13, indeter minate PANCREAS: No significant abnormality is seen. SPLEEN: No significant abnormality is seen. ADRENALS: No significant abnormality is seen. KIDNEYS: No significant abnormality is seen. REPRODUCTIVE ORGANS: No significant abnormality is seen BOWEL: Retained fecal debris is present throughout the distribution of the colon, the appendix is no rmal, there is no small bowel obstruction. FREE AIR: No Free Air visible. ASCITES: None visible. PELVIC ADENOPATHY: None visualized. RETROPERITONEAL ADENOPATHY: No Retroperitoneal Adenopathy visible. URINARY BLADDER: No significant abnormality is seen. OSSEOUS STRUCTURES: No significant abnormality is seen, mild degenerative disc change is noted, ther e is a spinal curvature. IMPRESSION: CORRELATE FOR FECAL STASIS. FINDINGS IN THE LIVER STATISTICALLY LIKELY TO REPRESENT A CYST OR HEMANGI KARINA, ALTERNATE IMAGING COULD BE PERFORMED FOR FURTHER EVALUATION OR ALTERNATIVELY FOLLOW-UP COULD BE PERFORMED TO ASSESS FOR STABILITY.
== END | disposition home or self-care (01) ==
LOC: RADCTMAIN 11:29
PROVIDERS: ATTEND Physician Assistant Medical
DX: R10.84 Generalized abdominal pain (principal); M54.9 Dorsalgia, unspecified
CPT/HCPCS: 74177; Q9967

== ENCOUNTER → 2021-08-03 | Outpatient (CLI) | payer BC | END | disposition home or self-care (01) | LOC: LABWHC1 16:05 | PROVIDERS: ATTEND Obstetrics & Gynecology Obstetrics | DX: N92.5 Other specified irregular menstruation (principal) | CPT/HCPCS: 36415; 84144; 84702 ==

== ENCOUNTER → 2022-01-01 | Outpatient (CLI) | payer BC | END | disposition home or self-care (01) | LOC: LABWHC1 15:23 | PROVIDERS: ATTEND Obstetrics & Gynecology Obstetrics | DX: Z36.9 Encounter for antenatal screening, unspecified (principal) | CPT/HCPCS: 36415; 82950 ==

== ENCOUNTER 2022-02-22 20:10 | Emergency (ER) | payer BC ==
--- NOTE | 2022-02-22 21:12 | ED ---
Chest Pain HPI - General Chief Complaint: Chest Pain Stated Complaint: Chest Pain,Left shoulder pain, 8 Months Time Seen by Provider: 02/22/22 20:53 Source: patient, RN notes reviewed Mode of arrival: ambulatory Limitations: no limitations - History of Present Illness Initial Comments: This is a pleasant 31-year-old female presents to emergency department complaining of chest discomfort, dry cough with deep inspiration, tingling sensation and pain in her left arm, and left leg swelling. Patient is 38 weeks gestation. Patient A1. Patient denying any shortness of breath. Denying any chest pain other than the discomfort with a deep breath in. Patient also states her left knee seems to be bothering her more. Patient states she had arthroscopic surgery in that knee in 2012 but no recent surgery or injury. No headache, no fever or chills, no changes in vision or hearing, no sore throat or difficulty with speech, no neck pain, CHEST discomfort with deep inspiration, no abdominal pain, no nausea or vomiting, no changes in urination or bowel movements, no numbness or tingling, no extremity pain, no skin rashes or lesions. Past medical, surgical, social, and family history reviewed. - Related Data Home Medications Medication Instructions Recorded Confirmed Famotidine [Pepcid] 40 mg PO BID 09/05/20 09/05/20 Pnv No.95/Ferrous Fum/Folic AC 1 tab PO DAILY 09/05/20 09/05/20 [ Multivitamin Tablet] Previous Rx's Medication Instructions Recorded Acetaminophen Tab [Tylenol] 1,000 mg PO Q6H tab 09/07/20 Ibuprofen [Motrin] 600 mg PO Q6H tab 09/07/20 Sennosides-Docusate Sodium 2 each PO BID@0800,2000 tab 09/07/20 [Senokot-S] Allergies Allergy/AdvReac Type Severity Reaction Status Date / Time Sulfa (Sulfonamide Allergy Rash/Hives Verified 10/10/19 14:43 Antibiotics) Review of Systems ROS Statement: Those systems with pertinent positive or pertinent negative responses have been documented in the HPI. ROS Other: All systems not noted in ROS Statement are negative. EKG Findings - EKG Comments: EKG Findings:: EKG done at 2050 and read by the ED attending physician reveals sinus rhythm with a rate of 69, normal axis, normal intervals, no acute ST or T- wave changes. RSR pattern in lead III Past Medical History Past Medical History: No Reported History History of Any Multi-Drug Resistant Organisms: None Reported Additional Past Surgical History / Comment(s): d&c, X2 Knee sugerys Past Anesthesia/Blood Transfusion Reactions: Postoperative Nausea & Vomiting (PONV) Past Psychological History: No Psychological Hx Reported Smoking Status: Never smoker Past Alcohol Use History: None Reported Past Drug Use History: None Reported General Exam - General Exam Comments Initial Comments: Patient does not appear to be ill or toxic. No specific distress. Vital signs reviewed. Capillary refill less than 2 seconds. No adventitious lung sounds. Limitations: no limitations General appearance: alert, in no apparent distress Head exam: Present: atraumatic, normocephalic, normal inspection Eye exam: Present: normal appearance, PERRL, EOMI. Absent: scleral icterus, con junctival injection, periorbital swelling ENT exam: Present: normal exam, mucous membranes moist Neck exam: Present: normal inspection, full ROM. Absent: tenderness, meningismus, lymphadenopathy Respiratory exam: Present: normal lung sounds bilaterally. Absent: respiratory distress, wheezes, rales, rhonchi, stridor Cardiovascular Exam: Present: regular rate, normal rhythm, normal heart sounds. Absent: systolic murmur, diastolic murmur, rubs, gallop, clicks GI/Abdominal exam: Present: soft, normal bowel sounds, other (Gravid uterus with no tenderness). Absent: distended, tenderness, guarding, rebound, rigid Extremities exam: Present: normal inspection, full ROM, normal capillary refill, pedal edema (Scant). Absent: tenderness, joint swelling, calf tenderness Back exam: Present: normal inspection, full ROM Neurological exam: Present: alert, oriented X3, CN II-XII intact Psychiatric exam: Present: normal affect, normal mood Skin exam: Present: warm, dry, intact, normal color. Absent: rash, cyanosis, diaphoretic, erythema, urticaria, vesicles Course Vital Signs 02/22/22 02/22/22 02/22/22 20:16 20:44 20:55 Temperature 98 F Pulse Rate 75 80 Pulse Rate [ 81 Pulse Oximetery ] Respiratory 16 16 Rate Blood Pressure 138/81 116/64 O2 Sat by Pulse 100 96 Oximetry 02/22/22 02/22/22 02/22/22 21:18 22:00 23:10 Temperature 98.0 F Pulse Rate 77 72 74 Pulse Rate [ Pulse Oximetery ] Respiratory 16 16 17 Rate Blood Pressure 116/70 111/64 106/66 O2 Sat by Pulse 96 97 96 Oximetry 02/23/22 00:00 Temperature Pulse Rate 70 Pulse Rate [ Pulse Oximetery ] Respiratory 16 Rate Blood Pressure 115/76 O2 Sat by Pulse 96 Oximetry - Reevaluation(s) Reevaluation #1: 02/23/22 00:37 Medical record is reviewed Symptoms are improved here in the emergency department Patient is informed of results and questions answered Patient in no distress Chest Pain MDM - MDM Differential diagnosis includes chest wall pain, acute bronchitis, possibly COVID-19 or other viral illness, pulmonary embolism is within the differential. Suspect the patient scant edema is due to the itself. Does not appear to be consistent with preeclampsia. The case was discussed in detail with ED attending physician. Presentation, findings, treatment plan discussed in detail. Pulmonary embolism was considered. Patient's d-dimer is elevated. Discussed pros worse cons of computed tomography scan with the patient to include radiation exposure and misdiagnosis. Patient concurs that the computed tomography scan is indicated. 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 Klein Computed tomography scan with IV contrast interpreted by me shows no evidence of acute pathology. No evidence of pulmonary embolism. Concur with radiology interpretation Disposition Clinical Impression: Atypical chest pain Disposition: HOME SELF-CARE Condition: Good Instructions (If sedation given, give patient instructions): Chest Pain (ED), Paresthesia (ED) Additional Instructions: Follow-up with your regular physician as directed. Return to the ER immediately if any symptoms worsen, new symptoms arise, or any other problems develop. Call in the morning to make an appointment with the assistant teaching professor. Is patient prescribed a controlled substance at d/c from ED?: No Referrals: Pura Howe DO [Doctor of Osteopathic Medicine] - 1-2 days Time of Disposition: 00:37
[2022-02-22 21:33] LABS: ALT 12 U/L (4-34); AST 26 U/L (14-36); African American GFR (CKD) >90 (>60 ml/min/1.73 sqM); Albumin 3.5 g/dL (3.5-5.0); Alkaline Phosphatase 126 U/L (38-126); Anion Gap 5 mmol/L; Basophils # (A) 0.1 k/uL (0-0.2); Basophils % (A) 0 %; Blood Urea Nitrogen 11 mg/dL (7-17); Calcium 8.6 mg/dL (8.4-10.2); Carbon Dioxide 22 mmol/L (22-30); Chloride 106 mmol/L (98-107); Eosinophils # (A) 0.1 k/uL (0-0.7); Eosinophils % (A) 1 %; Glucose 88 mg/dL (74-99); HCT 33.2 % (34.0-46.0); Lymphocytes # (A) 2.2 k/uL (1.0-4.8); Lymphocytes % (A) 19 %; MCH 33.3 pg (25.0-35.0); MCHC 36.1 g/dL (31.0-37.0); MCV 92.2 fL (80.0-100.0); Magnesium 2.1 mg/dL (1.6-2.3); Mean Platelet Volume 7.7; Monocytes # (A) 0.4 k/uL (0-1.0); Monocytes % (A) 4 %; Neutrophils # (A) 8.7 k/uL (1.3-7.7); Neutrophils % (A) 73 %; Non-African American GFR(CKD) >90 (>60 ml/min/1.73 sqM); Platelet Count 220 k/uL (150-450); Potassium 4.3 mmol/L (3.5-5.1); RDW 12.6 % (11.5-15.5); Sodium 133 mmol/L (137-145); Total Bilirubin 0.3 mg/dL (0.2-1.3); Total Protein 6.3 g/dL (6.3-8.2); WBC 11.8 k/uL (3.8-10.6)
[2022-02-22 22:04] LABS: Uric Acid 3.3 mg/dL (3.7-7.4)
--- NOTE | 2022-02-22 22:05 | US ---
EXAMINATION TYPE: US venous doppler duplex LE DATE OF EXAM: 02/22/2022 9:07 PM COMPARISON: NONE CLINICAL HISTORY: Leg pain, dyspnea, . Chest pain, 8 months pg SIDE PERFORMED: Bilateral TECHNIQUE: The lower extremity deep venous system is examined utilizing real time linear array sonog chance with graded compression, doppler sonography and color-flow sonography. VESSELS IMAGED: Common Femoral Vein Deep Femoral Vein Greater Saphenous Vein * Femoral Vein Popliteal Vein Small Saphenous Vein * Proximal Calf Veins (* superficial vessels) Right Leg: Negative for DVT Left Leg: Negative for DVT IMPRESSION: No evidence of deep vein thrombosis in both legs.
[2022-02-22 22:16] LABS: Amorphous Sediment,Urine Rare /hpf; Appearance,Urine Clear (Clear); Bacteria,Urine Occasional /hpf; Bilirubin,Urine Negative (Negative); Blood,Urine Negative (Negative); Color,Urine Light Yellow; Glucose,Urine (UA) Negative (Negative); Hyaline Casts,Urine 1 /lpf (0-2); Ketones,Urine Negative (Negative); Leukocyte Esterase,Urine Small (Negative); Nitrite,Urine Negative (Negative); Protein,Urine Negative (Negative); RBC,Urine <1 /hpf (0-5); Specific Gravity,Urine 1.026 (1.001-1.035); Squamous Epithelial Cell,Urine 1 /hpf (0-4); Urobilinogen,Urine <2.0 mg/dL (<2.0); WBC,Urine 3 /hpf (0-5)
[2022-02-22 23:10] VITALS: TEMP 98
[2022-02-22] MEDS ORDERED: SODIUM CHLORIDE 0.9% 1,000 ML IV ONE (23:13)
--- NOTE | 2022-02-23 00:24 | CT ---
EXAMINATION TYPE: CT chest angio for PE DATE OF EXAM: 02/23/2022 COMPARISON: HISTORY: chest pain elevated d dimer CT DLP: 343.3 mGycm Automated exposure control for dose reduction was used. CONTRAST: Performed with IV Contrast, patient injected with 75 mL of Isovue 370. There are Three-D postprocessed images. There is mild subsegmental atelectasis in interstitial density at the posterior lung bases. No pulmon storm mass. Heart and mediastinum are normal. There are no hilar masses. Thoracic aorta is intact. No d issection. No evidence of aneurysm. There is normal contrast opacification of the pulmonary arteries. No filling defect. The thoracic spine is intact. No fracture. Upper abdominal soft tissues are intact. IMPRESSION: No evidence of pulmonary embolism. Mild subsegmental atelectasis and interstitial density at the lung bases. No suspicious pulmonary mass.
[2022-02-23 00:39] VITALS: BP 115/76; PULSE 70; RESP 16
== END 2022-02-23 00:45 | disposition home or self-care (01) ==
LOC: EC 20:10
DX: O99.891 Other specified diseases and conditions complicating pregnancy (principal); R07.89 Other chest pain; Z3A.38 38 weeks gestation of pregnancy; Z88.2 Allergy status to sulfonamides
CPT/HCPCS: 36415; 93005; 85379; 83880; 80053; 83615; 83735; 84550; 84484; 85025; 81001; 87636; 93970; 71275; 99285; 96360; Q9967; 99284

== ENCOUNTER 2022-03-01 09:03 | Outpatient (CLI) | payer BC ==
[2022-03-01] MEDS ORDERED: ACETAMINOPHEN IV (For NPO) 1,000 MG in EMPTY BAG 1 BAG IVPB ONE (09:25)
[2022-03-01] MEDS ORDERED: LACTATED RINGERS 1,000 ML IV SCH (09:30)
[2022-03-01 09:52] LABS: Basophils % (A) 0 %; Eosinophils % (A) 0 %; HGB 12.3 gm/dL (11.4-16.0); Lymphocytes # (A) 0.6 k/uL (1.0-4.8); Lymphocytes % (A) 5 %; MCH 31.8 pg (25.0-35.0); MCHC 34.3 g/dL (31.0-37.0); MCV 92.8 fL (80.0-100.0); Mean Platelet Volume 8.3; Monocytes # (A) 0.3 k/uL (0-1.0); Monocytes % (A) 3 %; Neutrophils # (A) 9.6 k/uL (1.3-7.7); Neutrophils % (A) 90 %; Platelet Count 207 k/uL (150-450); RBC 3.88 m/uL (3.80-5.40); RDW 12.9 % (11.5-15.5); WBC 10.7 k/uL (3.8-10.6)
[2022-03-01 09:59] LABS: African American GFR (CKD) >90 (>60 ml/min/1.73 sqM); Anion Gap 5 mmol/L; Blood Urea Nitrogen 7 mg/dL (7-17); Calcium 8.1 mg/dL (8.4-10.2); Carbon Dioxide 22 mmol/L (22-30); Chloride 104 mmol/L (98-107); Glucose 88 mg/dL (74-99); Non-African American GFR(CKD) >90 (>60 ml/min/1.73 sqM); Potassium 4.2 mmol/L (3.5-5.1); Sodium 131 mmol/L (137-145)
[2022-03-01 10:42] LABS: Appearance,Urine Clear (Clear); Bacteria,Urine Moderate /hpf; Bilirubin,Urine Negative (Negative); Blood,Urine Negative (Negative); Color,Urine Light Yellow; Glucose,Urine (UA) Negative (Negative); Ketones,Urine 2+ (Negative); Leukocyte Esterase,Urine Trace (Negative); Nitrite,Urine Negative (Negative); Protein,Urine Negative (Negative); RBC,Urine <1 /hpf (0-5); Specific Gravity,Urine 1.011 (1.001-1.035); Squamous Epithelial Cell,Urine <1 /hpf (0-4); Urobilinogen,Urine <2.0 mg/dL (<2.0); WBC,Urine 1 /hpf (0-5)
[2022-03-01] MEDS: LACTATED RINGERS 1,000 ML IV SCH ×2 (11:06→11:30)
[2022-03-01 11:21] VITALS: BP 123/67; PULSE 116; RESP 16; TEMP 99.6
--- NOTE | 2022-03-17 19:41 | P.MSEPDOC ---
Presenting Problems - Arrival Data Date of Arrival on Unit: 03/01/22 Time of Arrival on Unit: 09:03 Mode of Transport: Ambulatory - Complaint OB-Reason for Admission/Chief Complaint: Observation/Evaluation Comment: Pt presents to triage c/o fever and cough x 24 hours. Pt states onset of vomitting Tuesday at 1830, resolved at present. Has only been tolerating sips and crackers since last night. Pt congested. Denies nausea/vomiting/diarrhea at this time. Pt states last took Tylenol at 0100, fever was 102 at that time. Medical History - Information : 4 Para: 1 Term: 1 - Gestational Age Gestational Age by MARQUITA (wks/days): 34 Weeks and 2 Days - History Complications: Prior Review of Systems - Review of Systems Constitutional: No problems Breast: No problems ENT: Cough, Nasal congestion Cardiovascular: No problems Respiratory: No problems Gastrointestinal: Pain Genitourinary: No problems Musculoskeletal: No problems Neurological: No problems Skin: No problems Comment: Cramping started early this morning Vital Signs - Temperature Temperature: 99.6 F Temperature Source: Oral - Pulse Right Sitting Brachial Pulse Rate: 116 Pulse Assessment Method: Pulse Oximetry - Respirations Respiratory Rate: 16 Oxygen Delivery Method: Room Air O2 Sat by Pulse Oximetry: 95 - Blood Pressure Right Arm Sitting Blood Pressure: 123/67 Blood Pressure Mean: 85 Blood Pressure Source: Automatic Cuff Medical Screen Scoring - Cervical Exam Dilation (cm): 0 Effacement (%): 50 Station: -3 Membranes: Intact - Assessment - Baby A Baseline FHR: 155 Heart Rate - NICHD Category: Category I (Normal) NST: Reactive Physician Notification - Physician Notified Physician Notified Date: 03/01/22 Physician Notified Time: 09:45 Physician: Pura Howe New Order Received: Yes - Notification Comment Comment: 45-Spk c\Dr. Howe, present on unit. Reviewed pts reason for triage visit, VS, asst and hx reviewed. Orders rec'd for CBC, BMP, urinalysis, 1L LR, Ofirmev, Influenza, RSV, Covid swab. 7824-Dr. Howe contacted and reviewed pts labs, +Influenza A. SVE Cl/50/-3, FFN collected. Orders rec'd to administered 3L LR total and pt may be d/c home. FFN does not need to be sent. Cancel appt for this Tuesday and reschedule for following week. Tamiflu to be pres cribed to [facility]. Maternal Triage Index - Maternal Triage Index Presenting for scheduled procedure w/no complaint: No - Stat/Priority 1 Stat Priority 1: No - Urgent/Priority 2 Urgent Priority 2: No - Prompt/Priority 3 Prompt Priority 3: Yes Criteria Met for Priority 3: 34 2/7, cramping, previous c/s - Non-Urgent/Priority 4 Non-Urgent Priority 4: No Disposition - Disposition OB Disposition: Discharge to home, Written follow up instructions reviewed Discharge Date: 03/01/22 Discharge Time: 12:15 I agree with the RN Medical Screening Exam: Yes Case reviewed; plan agreed upon as documented in EMR&OBIX.: Yes Diagnosis: VOMITING OF , UNSPECIFIED
== END 2022-03-01 12:45 | disposition home or self-care (01) ==
LOC: FBPOP 09:03
PROVIDERS: ATTEND Obstetrics & Gynecology Obstetrics
DX: O21.9 Vomiting of pregnancy, unspecified (principal); Z3A.34 34 weeks gestation of pregnancy; Z88.2 Allergy status to sulfonamides
CPT/HCPCS: 59025; 99214; 96361; 96365; 36415; 80048; 85025; 81001; 87636; J0131

== ENCOUNTER 2022-04-04 23:35 | Inpatient (IN) | payer BC ==
[2022-04-04] MEDS: LACTATED RINGERS 1,000 ML IV SCH (23:59)
[2022-04-05] MEDS ORDERED: TERBUTALINE 1 MG/ML VIAL SQ PRN (00:13)
[2022-04-05] MEDS ORDERED: LIDOCAINE 0.5% (PF) 5 MG/ML (50 ML SDV) SQ PRN (00:13)
[2022-04-05] MEDS ORDERED: BUTORPHANOL 1 MG/ML 1 ML VIAL IV PRN (00:14)
[2022-04-05] MEDS ORDERED: OXYTOCIN 30 UNITS/500 ML NS 30 UNIT in SALINE 1 500ML.BAG IV SCH ×2 (00:15→10:15)
[2022-04-05 00:30] LABS: Basophils % (A) 0 %; Eosinophils # (A) 0.1 k/uL (0-0.7); Eosinophils % (A) 1 %; HCT 33.6 % (34.0-46.0); HGB 11.6 gm/dL (11.4-16.0); Lymphocytes # (A) 2.3 k/uL (1.0-4.8); Lymphocytes % (A) 23 %; MCH 31.9 pg (25.0-35.0); MCHC 34.6 g/dL (31.0-37.0); Mean Platelet Volume 8.1; Monocytes # (A) 0.4 k/uL (0-1.0); Monocytes % (A) 4 %; Neutrophils # (A) 6.9 k/uL (1.3-7.7); Neutrophils % (A) 69 %; Platelet Count 231 k/uL (150-450); RBC 3.65 m/uL (3.80-5.40); RDW 13.1 % (11.5-15.5)
[2022-04-05] MEDS: LACTATED RINGERS 1,000 ML IV SCH ×2 (03:04→03:52)
[2022-04-05] MEDS ORDERED: SODIUM CHLORIDE 0.9% 100 ML BAG ONE (03:11)
[2022-04-05] MEDS ORDERED: fentaNYL (PF) 50 MCG/ML 5 ML AMP ONE (03:11)
[2022-04-05] MEDS ORDERED: ROPIVACAINE 5 MG/ML 20 ML AMPULE ONE (03:11)
[2022-04-05] MEDS ORDERED: ROPIVACAINE 100 MG, fentaNYL (PF). 200 MCG in SODIUM CHLORIDE 0.9% 76 ML EPIDURAL ONE (06:49)
[2022-04-05] MEDS ORDERED: ONDANSETRON 4 MG/2 ML VIAL IVP STA (08:47)
--- NOTE | 2022-04-05 08:56 | P.HPOB ---
History of Present Illness H&P Date: 04/05/22 Chief Complaint: IUP at 39 and one, history of 1 desires TOLAC This is a 31-year-old 4 para 10-1 at 39 and one sevenths weeks that presents to labor and delivery with complaints of spontaneous rupture of membranes. Patient denied contractions at that time. Patient noted rupture around 10:30pm. Patient states fluid was noted to be clear in nature. Patient has been receiving routine care which has been essentially uncomplicated. Patient did have a COVID-19 infection during and has been receiving testing. All testing has been normal. Patient presented with grossly ruptured membranes, 2 cm dilated. Patient was admitted to labor and delivery. Review of Systems Constitutional: Denies chills, Denies fatigue, Denies fever Ears, nose, mouth and throat: Denies headache Cardiovascular: Reports leg edema Respiratory: Denies dyspnea Gastrointestinal: Denies constipation, Denies diarrhea, Denies nausea, Denies vomiting Genitourinary: Reports Past Medical History Past Medical History: No Reported History History of Any Multi-Drug Resistant Organisms: None Reported Past Surgical History: Section Additional Past Surgical History / Comment(s): d&c, X2 Knee sugerys Past Anesthesia/Blood Transfusion Reactions: Postoperative Nausea & Vomiting (PONV) Past Psychological History: No Psychological Hx Reported Smoking Status: Never smoker Past Alcohol Use History: None Reported Past Drug Use History: None Reported - Past Family History Father Family Medical History: No Reported History Medications and Allergies Home Medications Medication Instructions Recorded Confirmed Type Pnv No.95/Ferrous Fum/Folic AC 1 tab PO DAILY 09/05/20 04/05/22 History [ Multivitamin Tablet] Famotidine [Pepcid] 20 mg PO DAILY 03/01/22 03/01/22 History Allergies Allergy/AdvReac Type Severity Reaction Status Date / Time Sulfa (Sulfonamide Allergy Rash/Hives Verified 04/05/22 00:11 Antibiotics) Exam Osteopathic Statement: *. No significant issues noted on an osteopathic structural exam other than those noted in the History and Physical/Consult. Vital Signs Temp Pulse Resp BP Pulse Ox 04/05/22 00:09 96.9 F L 73 17 119/72 98 04/04/22 23:58 96.9 F L 73 17 119/72 98 Intake and Output 04/04/22 04/05/2204/05/23 22:59 06:59 14:59 Output Total 600 Balance -600 Output: Urine 600 Other: Weight 85.275 kg Targeted physical exam is performed in this date in general this is a well- nourished well-developed female in no acute distress, breathing is nonlabored, heart has a regular rate and rhythm, abdomen is gravid and appropriate for gestational age, heart tones are noted to be category 1 and she is callie every 2-3 minutes, on cervical exam she is 8-9, 100, -1 station per RN. Results Result Diagrams: 04/05/22 00:03 Abnormal Lab Results - Last 24 Hours (Table) 04/05/22 Range/Units 00:03 RBC 3.65 L (3.80-5.40) m/uL Hct 33.6 L (34.0-46.0) % Assessment and Plan (1) SROM (spontaneous rupture of membranes) Current Visit: Yes Status: Acute Code(s): TLL7566 - SNOMED Code(s): 689233065 (2) H/O section Current Visit: Yes Status: Acute Code(s): Z98.891 - HISTORY OF UTERINE SCAR FROM PREVIOUS SURGERY SNOMED Code(s): 523716297 (3) Desires vaginal after trial Current Visit: Yes Status: Acute Code(s): O34.219 - MATERNAL CARE FOR UNSP TYPE SCAR FROM PREVIOUS DEL SNOMED Code(s): 166211566 (4) Term Current Visit: No Status: Acute Code(s): Z34.90 - ENCNTR FOR SUPRVSN OF NORMAL , UNSP, UNSP TRIMESTER SNOMED Code(s): 16621771 Plan: 31-year-old at 30 and one sevenths weeks presented with complaints of spontaneous rupture of membranes. Patient was noted to be spontaneously ruptured and was admitted to labor and delivery. Patient eventually progressed in labor through the night. Patient is currently 8-9 cm. Patient did receive an epidural through the night for pain control. Anticipate spontaneous vaginal delivery.
[2022-04-05] MEDS ORDERED: diphenhydrAMINE 50 MG/ML 1 ML VIAL IVP PRN ×2 (10:06)
[2022-04-05] MEDS ORDERED: ZOLPIDEM 5 MG TAB PO PRN (10:06)
[2022-04-05] MEDS ORDERED: LANOLIN CREAM 5 GM TUBE TOPICAL PRN (10:06)
[2022-04-05] MEDS ORDERED: diphenhydrAMINE 25 MG CAP PO PRN (10:06)
[2022-04-05] MEDS ORDERED: BENZOCAINE/MENTHOL SPRAY 1 GM/SPRAY AEROSOL TOPICAL PRN (10:06)
[2022-04-05] MEDS ORDERED: diphenhydrAMINE 50 MG CAP PO PRN (10:06)
[2022-04-05] MEDS ORDERED: HYDROCORTISONE 2.5% RECTAL CREAM 30 GM TUBE RECTAL PRN (10:06)
[2022-04-05] MEDS ORDERED: SIMETHICONE 80 MG CHEWABLE PO PRN (10:06)
--- NOTE | 2022-04-05 10:09 | P.PROBDLV ---
Vaginal Delivery Note - . Vaginal Delivery Note: 31-year-old that presented at 39-2/7 weeks with complaints of spontaneous rupture of membranes. Patient states she noted rupture membranes around 20-30 clear in nature. Patient presented to labor and delivery and was noted to be 2 cm dilated. Patient was admitted to labor and delivery. Patient did progress in labor eventually becoming uncomfortable requesting epidural placement. Epidural was placed without difficulty by the anesthesia department. Contractions were noted to space after epidural therefore Pitocin augmentation was begun. 2 milliunits of Pitocin used to augment labor. Patient progressed quickly to complete began pushing and had a normal spontaneous vaginal delivery of a viable male infant at 946, weight of 7 lbs. 12 oz., Apgars of 8 and 9 at one and 5 minutes respectively. After two-minute delayed the umbilical cord was doubly clamped and cut the placenta was delivered spontaneously intact with three-vessel cord being noted. On inspection the patient's vaginal vault a second degree midline laceration was appreciated. This was instilled with lidocaine repaired with 3-0 Rapide in the usual fashion. Uterus is noted to be firm and below the umbilicus. Estimated blood loss 250 mL, patient and infant tolerated delivery well and are resting comfortably. All counts were noted to be correct 2 at the end of the delivery
[2022-04-05] MEDS: IBUPROFEN 600 MG TAB PO SCH ×3 (12:44→22:39)
[2022-04-05] MEDS: ACETAMINOPHEN TAB 325 MG TAB PO PRN (19:40)
[2022-04-05] MEDS: SENNOSIDES-DOCUSATE SODIUM 1 EACH TAB PO SCH (19:40)
[2022-04-06] MEDS: ACETAMINOPHEN TAB 325 MG TAB PO PRN ×2 (02:01→09:15)
[2022-04-06] MEDS: IBUPROFEN 600 MG TAB PO SCH (04:17)
--- NOTE | 2022-04-06 08:26 | P.DS ---
Providers Date of admission: 04/05/22 00:00 Expected date of discharge: 04/06/22 Attending physician: Pura Howe Primary care physician: Stated None - Discharge Diagnosis(es) (1) SROM (spontaneous rupture of membranes) Current Visit: Yes Status: Acute (2) H/O section Current Visit: Yes Status: Acute (3) Desires vaginal after trial Current Visit: Yes Status: Acute (4) Term Current Visit: No Status: Acute (5) (vaginal after ) Current Visit: Yes Status: Acute Hospital Course: This is a 31-year-old 4 now para 20-2 that presented to labor and delivery at 39-2/7 weeks with complaints of spontaneous rupture of membranes. Patient had been receiving routine care which have been complicated by COVID-19 infection but overall she has done well. Patient was admitted to labor and delivery noted to be 2 cm dilated. Patient did progress in labor eventually becoming uncomfortable and requesting epidural placement. Epidural was placed without difficulty by the anesthesia department. Patient progressed to complete began pushing and had a normal spontaneous vaginal delivery, of a viable male infant at 946, weight of 7 lbs. 12 oz., Apgars of 8 and 9 at one and 5 minutes respectively. Patient did sustain a second-degree midline laceration which was repaired in the usual fashion with 3-0 Rapide. Patient's course has been uneventful. On this day #1 she is ambulating and voiding without difficulty. She is tolerating a regular diet without nausea or vomiting. She states her pain is well-controlled. She denies concerns. She would like discharge home at 24 hours if possible. Patient does desire circumcision of her infant son and await done prior to discharge. Patient Condition at Discharge: Good Plan - Discharge Summary New Discharge Prescriptions: No Action Pnv No.95/Ferrous Fum/Folic AC [ Multivitamin Tablet] 1 tab PO DAILY Famotidine [Pepcid] 20 mg PO DAILY Discharge Medication List Pnv No.95/Ferrous Fum/Folic AC [ Multivitamin Tablet] 1 tab PO DAILY 09/05/20 [History] Famotidine [Pepcid] 20 mg PO DAILY 03/01/22 [History] Follow up Appointment(s)/Referral(s): Tremp,Pura S, DO [Doctor of Osteopathic Medicine] - 4 Weeks Patient Instructions/Handouts: Vaginal Delivery (DC), Vaginal Delivery (GEN) Activity/Diet/Wound Care/Special Instructions: Bleeding precautions are reviewed with patient, questions are answered. [id number] ibuprofen as needed for pain. No intercourse or tub baths until 6 weeks . Discharge Disposition: HOME SELF-CARE
[2022-04-06 08:30] VITALS: BP 141/67; PULSE 91; RESP 16; TEMP 98
[2022-04-06] MEDS: SENNOSIDES-DOCUSATE SODIUM 1 EACH TAB PO SCH (09:16)
== END 2022-04-06 11:24 | disposition home or self-care (01) | DRG 807 ==
LOC: FBPOP 23:35 → 4FBP 04-05
PROVIDERS: ADMIT Obstetrics & Gynecology Obstetrics; ATTEND Obstetrics & Gynecology Obstetrics
PROC: 10E0XZZ Delivery of Products of Conception, External Approach (ICD-10-PCS; principal; 2022-04-05)
PROC: 0KQM0ZZ Repair Perineum Muscle, Open Approach (ICD-10-PCS; 2022-04-05)
PROC: 4A0HXCZ Measurement of Products of Conception, Cardiac Rate, External Approach (ICD-10-PCS; 2022-04-05)
PROC: 3E033VJ Introduction of Other Hormone into Peripheral Vein, Percutaneous Approach (ICD-10-PCS; 2022-04-05)
DX: O34.211 Maternal care for low transverse scar from previous cesarean delivery (principal); Z37.0 Single live birth; O42.92 Full-term premature rupture of membranes, unspecified as to length of time between rupture and onset of labor; O70.1 Second degree perineal laceration during delivery; Z3A.39 39 weeks gestation of pregnancy; Z88.2 Allergy status to sulfonamides; Z86.14 Personal history of Methicillin resistant Staphylococcus aureus infection
CPT/HCPCS: 59025; 84112; 85025; 86850; 86900; 86901; 99213

== ENCOUNTER 2023-02-07 18:06 | Emergency (ER) | payer BC ==
[2023-02-07 18:46] VITALS: TEMP 97.9
[2023-02-07] MEDS ORDERED: ONDANSETRON 4 MG/2 ML VIAL IVP STA (19:24)
[2023-02-07] MEDS ORDERED: KETOROLAC 15 MG/ML 1 ML VIAL IVP STA (19:24)
--- NOTE | 2023-02-07 19:25 | ED ---
Abdominal Pain HPI - General Chief Complaint: Abdominal Pain Stated Complaint: abd pain on left side Time Seen by Provider: 02/07/23 18:50 Source: patient, RN notes reviewed, old records reviewed Mode of arrival: ambulatory Limitations: no limitations - History of Present Illness Initial Comments: This is a 32-year-old female DF to the emergency department for evaluation. Patient presents today for evaluation regards of abdominal pain with nausea. No vomiting of travel show sick contacts. Patient has no fevers. No recent travel history or sick contacts no other complaints. MD Complaint: abdominal pain -: days(s) Location: LLQ, suprapubic Radiation: suprapubic Migration to: no migration, LLQ Severity scale (1-10): 6 Quality: stabbing Consistency: intermittent Improves With: nothing Worsens With: nothing Associated Symptoms: nausea Treatments Prior to Arrival: other - Related Data Home Medications Medication Instructions Recorded Confirmed No Known Home Medications 02/07/23 02/07/23 Allergies Allergy/AdvReac Type Severity Reaction Status Date / Time Sulfa (Sulfonamide Allergy Rash/Hives Verified 02/07/23 22:27 Antibiotics) Review of Systems ROS Statement: Those systems with pertinent positive or pertinent negative responses have been documented in the HPI. ROS Other: All systems not noted in ROS Statement are negative. Past Medical History Past Medical History: No Reported History History of Any Multi-Drug Resistant Organisms: None Reported Past Surgical History: Section Additional Past Surgical History / Comment(s): d&c, X2 Knee sugerys Past Anesthesia/Blood Transfusion Reactions: Postoperative Nausea & Vomiting (PONV) Past Psychological History: No Psychological Hx Reported Smoking Status: Never smoker Past Alcohol Use History: None Reported Past Drug Use History: None Reported - Past Family History Father Family Medical History: No Reported History General Exam Limitations: no limitations General appearance: alert, in no apparent distress Head exam: Present: atraumatic, normocephalic, normal inspection Eye exam: Present: normal appearance, PERRL, EOMI. Absent: scleral icterus, conjunctival injection, periorbital swelling ENT exam: Present: normal exam, mucous membranes moist Neck exam: Present: normal inspection. Absent: tenderness, meningismus, lymphadenopathy Respiratory exam: Present: normal lung sounds bilaterally. Absent: respiratory distress, wheezes, rales, rhonchi, stridor Cardiovascular Exam: Present: regular rate, normal rhythm, normal heart sounds. Absent: systolic murmur, diastolic murmur, rubs, gallop, clicks GI/Abdominal exam: Present: soft, tenderness, normal bowel sounds. Absent: distended, guarding, rebound, rigid Extremities exam: Present: normal inspection, full ROM, normal capillary refill. Absent: tenderness, pedal edema, joint swelling, calf tenderness Back exam: Present: normal inspection Neurological exam: Present: alert, oriented X3, CN II-XII intact Psychiatric exam: Present: normal affect, normal mood Skin exam: Present: warm, dry, intact, normal color. Absent: rash Course Vital Signs 02/07/23 02/07/23 18:23 19:17 Temperature 97.9 F Pulse Rate 73 60 Respiratory 16 18 Rate Blood Pressure 129/73 121/94 O2 Sat by Pulse 96 97 Oximetry - Reevaluation(s) Reevaluation #1: Medical records reviewed Reevaluation #2: Patient symptoms are improved Reevaluation #3: patient informed results questions answered Reevaluation #4: Was pt. sent in by a medical professional or institution (, PA, [employer], urgent care, hospital, or senior living...) When possible be specific @ -no Did you speak to anyone other than the patient for history (EMS, parent, family, police, friend...)? What history was obtained from this source @ -no Did you review nursing and triage notes (agree or disagree)? Why? @ -agree Are old charts reviewed (outside hosp., previous admission, EMS record, old EKG, old radiological studies, urgent care reports/EKG's, senior living records)? Report findings @ -yes Differential Diagnosis (chest pain, altered mental status, abdominal pain women, abdominal pain men, vaginal bleeding, weakness, fever, dyspnea, syncope, headache, dizziness, GI bleed, back pain, seizure, CVA, palpatations, mental health, musculoskeletal)? @ -prior EKG interpreted by me (3pts min.). @ -no X-rays interpreted by me (1pt min.). @ -no CT interpreted by me (1pt min.). @ -yes U/S interpreted by me (1pt. min.). @ -yes What testing was considered but not performed or refused? (CT, X-rays, U/S, labs)? Why? @ -none What meds were considered but not given or refused? Why? @ -none Did you discuss the management of the patient with other professionals ( professionals i.e. , PA, [employer], lab, RT, psych nurse, certified social workers in health care, tonsorial artist, teacher, equal employment opportunity officer, counter caser)? Give summary @ -no Was smoking cessation discussed for >3mins.? @ -no Was critical care preformed (if so, how long)? @ -no Were there social determinants of health that impacted care today? How? (Homelessness, low income, unemployed, alcoholism, drug addiction, transportation, low edu. Level, literacy, decrease access to med. care, long-term, rehab)? @ -none Was there de-escalation of care discussed even if they declined (Discuss DNR or withdrawal of care, Hospice)? DNR status @ -no What co-morbidities impacted this encounter? (DM, HTN, Smoking, COPD, CAD, Cancer, CVA, ARF, Chemo, Hep., AIDS, mental health diagnosis, sleep apnea, morbid obesity)? @ -none Was patient admitted / discharged? Hospital course, mention meds given and route, prescriptions, significant lab abnormalities, going to OR and other pertinent info. @ - Undiagnosed new problem with uncertain prognosis? @ -no Drug Therapy requiring intensive monitoring for toxicity (Heparin, Nitro, Insulin, Cardizem)? @ -no Were any procedures done? @ -no Diagnosis/symptom? @ - Acute, or Chronic, or Acute on Chronic? @ -Acute Uncomplicated (without systemic symptoms) or Complicated (systemic symptoms)? @ -Complicated Side effects of treatment? @ -no Exacerbation, Progression, or Severe Exacerbation? @ -exacerbation Poses a threat to life or bodily function? How? (Chest pain, USA, CT, pneumonia, PE, COPD, DKA, ARF, appy, cholecystitis, CVA, Diverticulitis, Homicidal, Suicidal, threat to staff... and all critical care pts) @ -no Reevaluation #5: Differential Abdominal Pain Women: Appendicitis, Cholecystitis, diverticulosis, ischemic bowel, pancreatitis, hepatitis, UTI, gastroenteritis, AAA, incarcerated hernia, bowel obstruction, constipation, inflammatory bowel, hepatitis, peptic ulcer disease, splenic infarction, perforated viscus, vulvitis, ovarian torsion, PID, kidney stone, placenta abruption, this is not meant to be an all-inclusive list Medical Decision Making - Medical Decision Making 32 female nonspecific abdominal pain here in the ER. Patient has normal testing. Patient symptoms are improved patient can be discharged home - Lab Data Result diagrams: 02/07/23 20:08 02/07/23 20:08 Lab Results 02/07/23 02/07/23 02/07/23 Range/Units 20:08 20:08 20:08 WBC 7.1 (3.8-10.6) k/uL RBC 4.25 (3.80-5.40) m/uL Hgb 13.2 (11.4-16.0) gm/dL Hct 39.3 (34.0-46.0) % MCV 92.6 (80.0-100.0) fL MCH 31.2 (25.0-35.0) pg MCHC 33.7 (31.0-37.0) g/dL RDW 12.1 (11.5-15.5) % Plt Count 239 (150-450) k/uL MPV 7.2 Neutrophils % 78 % Lymphocytes % 15 % Monocytes % 4 % Eosinophils % 0 % Basophils % 0 % Neutrophils # 5.5 (1.3-7.7) k/uL Lymphocytes # 1.1 (1.0-4.8) k/uL Monocytes # 0.3 (0-1.0) k/uL Eosinophils # 0.0 (0-0.7) k/uL Basophils # 0.0 (0-0.2) k/uL Sodium (137-145) mmol/L Potassium (3.5-5.1) mmol/L Chloride (98-107) mmol/L Carbon Dioxide (22-30) mmol/L Anion Gap mmol/L BUN (7-17) mg/dL Creatinine (0.52-1.04) mg/dL Est GFR (CKD-EPI)AfAm (>60 ml/min/1.73 sqM) Est GFR (CKD-EPI)NonAf (>60 ml/min/1.73 sqM) Glucose (74-99) mg/dL Plasma Lactic Acid George (0.7-2.0) mmol/L Calcium (8.4-10.2) mg/dL Total Bilirubin (0.2-1.3) mg/dL AST (14-36) U/L ALT (4-34) U/L Alkaline Phosphatase (38-126) U/L Total Protein (6.3-8.2) g/dL Albumin (3.5-5.0) g/dL Amylase (30-110) U/L Lipase (23-300) U/L Urine Color Light Yellow Urine Appearance Clear (Clear) Urine pH 7.5 (5.0-8.0) Ur Specific [place] 1.022 (1.001-1.035) Urine Protein Negative (Negative) Urine Glucose (UA) Negative (Negative) Urine Ketones 2+ H (Negative) Urine Blood Small H (Negative) Urine Nitrite Negative (Negative) Urine Bilirubin Negative (Negative) Urine Urobilinogen <2.0 (<2.0) mg/dL Ur Leukocyte Esterase Negative (Negative) Urine RBC <1 (0-5) /hpf Urine WBC 1 (0-5) /hpf Ur Squamous Epith Cells <1 (0-4) /hpf Urine Mucus Rare H (None) /hpf Urine HCG, Qual Not Detected (Not Detectd) 02/07/23 02/07/23 Range/Units 20:08 20:08 WBC (3.8-10.6) k/uL RBC (3.80-5.40) m/uL Hgb (11.4-16.0) gm/dL Hct (34.0-46.0) % MCV (80.0-100.0) fL MCH (25.0-35.0) pg MCHC (31.0-37.0) g/dL RDW (11.5-15.5) % Plt Count (150-450) k/uL MPV Neutrophils % % Lymphocytes % % Monocytes % % Eosinophils % % Basophils % % Neutrophils # (1.3-7.7) k/uL Lymphocytes # (1.0-4.8) k/uL Monocytes # (0-1.0) k/uL Eosinophils # (0-0.7) k/uL Basophils # (0-0.2) k/uL Sodium 139 (137-145) mmol/L Potassium 4.2 (3.5-5.1) mmol/L Chloride 104 (98-107) mmol/L Carbon Dioxide 23 (22-30) mmol/L Anion Gap 12 mmol/L BUN 12 (7-17) mg/dL Creatinine 0.56 (0.52-1.04) mg/dL Est GFR (CKD-EPI)AfAm >90 (>60 ml/min/1.73 sqM) Est GFR (CKD-EPI)NonAf >90 (>60 ml/min/1.73 sqM) Glucose 87 (74-99) mg/dL Plasma Lactic Acid George 0.8 (0.7-2.0) mmol/L Calcium 9.5 (8.4-10.2) mg/dL Total Bilirubin 0.5 (0.2-1.3) mg/dL AST 30 (14-36) U/L ALT 22 (4-34) U/L Alkaline Phosphatase 71 (38-126) U/L Total Protein 8.1 (6.3-8.2) g/dL Albumin 4.6 (3.5-5.0) g/dL Amylase 70 (30-110) U/L Lipase 61 (23-300) U/L Urine Color Urine Appearance (Clear) Urine pH (5.0-8.0) Ur Specific [place] (1.001-1.035) Urine Protein (Negative) Urine Glucose (UA) (Negative) Urine Ketones (Negative) Urine Blood (Negative) Urine Nitrite (Negative) Urine Bilirubin (Negative) Urine Urobilinogen (<2.0) mg/dL Ur Leukocyte Esterase (Negative) Urine RBC (0-5) /hpf Urine WBC (0-5) /hpf Ur Squamous Epith Cells (0-4) /hpf Urine Mucus (None) /hpf Urine HCG, Qual (Not Detectd) - Radiology Data Radiology results: report reviewed (CT head and pelvis PELVIS IS NEGATIVE FOR ACUTE DISEASE), image reviewed Disposition Clinical Impression: Abdominal pain Disposition: HOME SELF-CARE Condition: Good Instructions (If sedation given, give patient instructions): Abdominal Pain (ED) Is patient prescribed a controlled substance at d/c from ED?: No Referrals: Nadine Mathew DO [Primary Care Provider] - 1-2 days Time of Disposition: 22:30
[2023-02-07 19:31] VITALS: BP 121/94; PULSE 60; RESP 18
[2023-02-07 20:33] LABS: Basophils % (A) 0 %; Eosinophils % (A) 0 %; HCT 39.3 % (34.0-46.0); HGB 13.2 gm/dL (11.4-16.0); Lymphocytes # (A) 1.1 k/uL (1.0-4.8); Lymphocytes % (A) 15 %; MCH 31.2 pg (25.0-35.0); MCHC 33.7 g/dL (31.0-37.0); MCV 92.6 fL (80.0-100.0); Mean Platelet Volume 7.2; Monocytes # (A) 0.3 k/uL (0-1.0); Monocytes % (A) 4 %; Neutrophils # (A) 5.5 k/uL (1.3-7.7); Neutrophils % (A) 78 %; Platelet Count 239 k/uL (150-450); RBC 4.25 m/uL (3.80-5.40); RDW 12.1 % (11.5-15.5); WBC 7.1 k/uL (3.8-10.6)
--- NOTE | 2023-02-07 20:47 | US ---
EXAMINATION TYPE: US pelvic complete DATE OF EXAM: 02/07/2023 COMPARISON: NONE CLINICAL INDICATION: Female, 32 years old with history of torsion,pain; LUQ pain x 1 day. . No pe lvic surgeries TECHNIQUE: . Transabdominal sonographic images of the pelvis were acquired. Date of LMP: 02/04/23 EXAM MEASUREMENTS: Uterus: 7.7 x 5.6 x 4.0 cm Endometrial Stripe: 0.6 cm Right Ovary: 2.4 x 2.2 x 2.0 cm Left Ovary: 2.7 x 1.9 x 2.3 cm 1. Uterus: Anteverted wnl 2. Endometrium: wnl 3. Right Ovary: Multiple follicles seen 4. Left Ovary: Multiple follicles seen Spectral, color and waveform doppler imaging shows good arterial and venous flow within the ovaries ; there is no evidence for ovarian torsion. 5. Bilateral Adnexa: Bowel gas seen. Appears wnl 6. Posterior cul-de-sac: Free fluid seen IMPRESSION: 1. No evidence for acute pelvic process. 2. Appropriate arterial and venous spectral waveforms to the ovaries. 3. Free fluid in the pelvis likely physiologic.
[2023-02-07 21:04] LABS: ALT 22 U/L (4-34); AST 30 U/L (14-36); African American GFR (CKD) >90 (>60 ml/min/1.73 sqM); Albumin 4.6 g/dL (3.5-5.0); Alkaline Phosphatase 71 U/L (38-126); Amylase 70 U/L (30-110); Anion Gap 12 mmol/L; Blood Urea Nitrogen 12 mg/dL (7-17); Calcium 9.5 mg/dL (8.4-10.2); Carbon Dioxide 23 mmol/L (22-30); Chloride 104 mmol/L (98-107); Glucose 87 mg/dL (74-99); Lipase 61 U/L (23-300); Non-African American GFR(CKD) >90 (>60 ml/min/1.73 sqM); Potassium 4.2 mmol/L (3.5-5.1); Sodium 139 mmol/L (137-145); Total Bilirubin 0.5 mg/dL (0.2-1.3); Total Protein 8.1 g/dL (6.3-8.2)
[2023-02-07] MEDS ORDERED: SODIUM CHLORIDE 0.9% 500 ML 500 ML IV STA (21:33)
[2023-02-07] MEDS ORDERED: SODIUM CHLORIDE 0.9% 1,000 ML IV STA (21:33)
[2023-02-07 21:43] LABS: Appearance,Urine Clear (Clear); Bilirubin,Urine Negative (Negative); Blood,Urine Small (Negative); Color,Urine Light Yellow; Glucose,Urine (UA) Negative (Negative); Ketones,Urine 2+ (Negative); Leukocyte Esterase,Urine Negative (Negative); Mucus,Urine Rare /hpf; Nitrite,Urine Negative (Negative); PH, Urine 7.5 (5.0-8.0); Protein,Urine Negative (Negative); RBC,Urine <1 /hpf (0-5); Specific Gravity,Urine 1.022 (1.001-1.035); Squamous Epithelial Cell,Urine <1 /hpf (0-4); Urobilinogen,Urine <2.0 mg/dL (<2.0); WBC,Urine 1 /hpf (0-5)
[2023-02-07] MEDS ORDERED: SODIUM CHLORIDE 0.9% 1,000 ML IV SCH (21:45)
--- NOTE | 2023-02-07 22:27 | CT ---
EXAMINATION TYPE: CT abdomen pelvis wo con CT DLP: 399.5 mGycm, Automated exposure control for dose reduction was used. DATE OF EXAM: 02/07/2023 10:02 PM COMPARISON: 03/19/2021 CLINICAL INDICATION:Female, 32 years old with history of abdominal pain; LLQ abdominal pain TECHNIQUE: Axial CT of the ;CT abdomen pelvis wo con;Sagittal and coronal reformats were created on a separate workstation. Contrast used: mL of , (none if empty) Oral contrast used: without Oral Contrast (none if empty) FINDINGS: LOWER CHEST: Right lower lung opacities. ABDOMEN LIVER: Unremarkable GALLBLADDER AND BILE DUCTS: Unremarkable. PANCREAS: Unremarkable. SPLEEN: Unremarkable. ADRENAL GLANDS: Unremarkable. KIDNEYS AND URETERS: No evidence of hydronephrosis or renal calculus. The ureters are unremarkable. PELVIS BLADDER: Unremarkable REPRODUCTIVE: Tampon is in within the vagina. ABDOMEN & PELVIS STOMACH AND BOWEL: No evidence of bowel obstruction. The appendix is normal. There is moderate to lar ge amount stool in the colon. PERITONEUM/RETROPERITONEUM: No evidence of pneumoperitoneum. There is free fluid in the pelvis. VASCULATURE: No evidence of aortic aneurysm. MUSCULOSKELETAL: No acute osseous abnormalities LYMPH NODES: No gross evidence for lymphadenopathy. SOFT TISSUE/ABDOMINAL WALL: Unremarkable IMPRESSION: 1. No definitive evidence for acute abdominal process. There is small amount of free fluid in the pe lvis likely physiologic. 2. No evidence for obstructive uropathy or appendicitis. 3. Moderate amount of stool throughout the colon.
== END 2023-02-07 23:21 | disposition home or self-care (01) ==
LOC: EC 18:06
DX: R10.32 Left lower quadrant pain (principal); Z88.2 Allergy status to sulfonamides
CPT/HCPCS: 99285 ×2; 96374 ×2; 96375 ×2; 36415; 80053; 82150; 83605; 83690; 85025; 81001; 81025; 93975; 76856; 74176; J2405; J1885

== ENCOUNTER → 2023-09-08 | Outpatient (CLI) | payer BC | END | disposition home or self-care (01) | LOC: LABWHC1 15:33 | PROVIDERS: ATTEND Obstetrics & Gynecology Obstetrics | DX: N92.6 Irregular menstruation, unspecified (principal) | CPT/HCPCS: 36415; 84702 ==

== ENCOUNTER → 2023-09-10 | Outpatient (CLI) | payer BC | END | disposition home or self-care (01) | LOC: LABWHC1 10:58 | PROVIDERS: ATTEND Obstetrics & Gynecology Obstetrics | DX: N92.6 Irregular menstruation, unspecified (principal) | CPT/HCPCS: 36415; 84702 ==